=== PATIENT | female | born 1985 | race Caucasian/White ===

== ENCOUNTER 2023-12-02 13:28 | Emergency (ER) | payer OTHER, SELFPAY ==
[2023-12-02 13:43] VITALS: BP 113/75
--- NOTE | 2023-12-02 13:48 | ED.GENMED ---
ED Provider Triage
<Oxana Novoa SUPERINTENDENT STATIONS - Last Filed: 12/02/23 13:55>
-
Patient seen by provider in Triage?: Seen in Triage
Attestation: A medical screening examination has been initiated by a qualified medical provider. Based on the assessment performed at this time, it has been determined that an emergent medical condition may exist and the patient has been informed
that further medical evaluation and possible additional diagnostic testing may be needed.
HPI: 38 yo hx c section, gastroparesis, GERD (has been taking Omeprazole as ordered, took old rx for Carafate 5 days ago once with some relief), bilateral tubal removal, removal of left ovary, presents with 5 days intermittent 'burning, stabbing'
mid upper abdominal pain (does have hernia), vomited several times 5 days. Also chronically constipated. Last BM this a.m. she has to chronically manually remove her stool. Has been fasting for 3 months and lost 50 lbs.
GENERAL: Alert , in no apparent distress
ENT: No visible abnormalities.
LUNGS: No acute respiratory distress
NEUROLOGICAL: Alert and oriented
Abdomen: Tender mid epigastric.
SKIN: Skin intact. No visible changes.
MUSCULOSKELETAL: Moving extremities normally
PSYCH: Normal and appropriate interaction.
This is a medical evaluation conducted in person to initiate diagnostic evaluation and provide initial therapeutics. Please see further documentation by the treating clinician.
History of Present Illness
<Oxana Novoa SUPERINTENDENT STATIONS - Last Filed: 12/02/23 13:55>
General
Chief Complaint: Chest Pain
Time Seen by Provider: 12/02/23 16:17
<Yo Finley Jr., PA-C - Last Filed: 12/02/23 18:04>
General
Source: patient
Exam Limitations: none
Nursing documentation reviewed up to this point in time: agreed with
History of Present Illness
History of Present Illness:
38-year-old female past medical history gastroparesis, GERD, IBS presenting to department today with concerns of upper abdominal pain with intermittent nausea vomiting diarrhea also some radiating pain to the chest described as achy sharp which has
been intermittent for a few weeks. Denies nausea vomiting fevers
Past History
<Oxana Novoa SUPERINTENDENT STATIONS - Last Filed: 12/02/23 13:55>
Past History
ED Past Medical History: None; Negative GERD or HTN
ED Past Surgical History: Other (); Negative Cardiac
Social History
Tobacco: Smoker
Alcohol: None
Drug: None
Personal: Single
Living: with family
Employment: Employed
Family History
Family History: Other (Noncontributory )
Review of Systems
<Yo Finley Jr., PA-C - Last Filed: 12/02/23 18:04>
Review of Systems
Allergies reviewed?: Yes
All Other Systems: ROS reviewed and negative except as documented in HPI and ROS
Phy Exam
<Yo Finley Jr., PA-C - Last Filed: 12/02/23 18:04>
Physical Exam
Physical Exam:
GENERAL: Alert , in no apparent distress
EYE: pupils equal and reactive
NECK: Supple, no significant adenopathy.
ENT: o/p clr, mmm.
CARDIAC: Regular rate and rhythm .
LUNGS: Clear breath sounds bilaterally, no acute respiratory distress, no wheezes/rales/rhonchi
ABDOMEN: Mild pain to the upper abdomen otherwise soft, without focal sharp tenderness, no r/g, no cvat
NEUROLOGICAL: Alert and oriented, no focal neuro deficits
SKIN: Warm and dry, skin intact.
MUSCULOSKELETAL: No edema, well perfused.
PSYCH: Normal and appropriate interaction.
Scores
<Yo Finley Jr., PA-C - Last Filed: 12/02/23 18:04>
Heart Score for Chest Pain Patients
STEMI patient?: No
History: Slightly or Non-Suspicious
ECG: Normal
Age: </= 45 years
Risk Factors: No Risk Factors
Troponin: </= Normal Limit
Heart Score for Chest Pain Patients: 0
Heart Score Risk: 2.5% MACE over next 6 weeks
Course
<Oxana Novoa, SUPERINTENDENT STATIONS - Last Filed: 12/02/23 13:55>
Orders/Labs/Results
Orders:
Orders
12/02/23 13:31
Electrocardiogram (*1) Urgent
Reason for Study: Chest Pain
EKG- Treatment ONCE
12/02/23 13:47
Electrocardiogram (*1) Urgent
Reason for Study: Chest Pain
EKG- Treatment ONCE
Test Result ONCE
12/02/23 13:48
Urinalysis Reflex To Culture Urgent
Date Specimen was Collected: 12/02/23
Time Specimen was Collected: 13:47
12/02/23 13:49
CT Abd/pel W Iv And Oral Contr Urgent
Comment:
Reason For Exam: abd pain for the last wk
12/02/23 13:50
Iohexol [Omnipaque] 50 ml .ROUTE .STK-MED ONE
12/02/23 13:53
Iohexol [Omnipaque] See Protocol PO NOW STA
12/02/23 13:59
Complete Blood Count/With Diff Urgent
Comprehensive Metabolic Panel Urgent
HCG, Serum Qualitative Screen Urgent
12/02/23 14:58
Urinalysis Reflex To Culture Urgent
Date Specimen was Collected: 12/02/23
Time Specimen was Collected: 14:52
12/02/23 17:40
Ondansetron Injectable [Zofran] 4 mg .ROUTE .STK-MED ONE
Abnormal Lab Results
12/02/23
13:59
MPV 10.9 H fL
(7.4-10.4)
BUN 20 H mg/dl
(7-17)
12/02/23 13:59
12/02/23 13:59
Vital Signs
Initial and Last Documented VS:
Initial Vital Signs
Temp Pulse Resp BP Pulse Ox
98.0 F 69 16 113/75 98
12/02/23 13:43 12/02/23 13:43 12/02/23 13:43 12/02/23 13:43 12/02/23 13:43
Last Documented Vital Signs
Temp Pulse Resp BP Pulse Ox
98.0 F 65 16 105/66 100
12/02/23 13:43 12/02/23 16:58 12/02/23 16:58 12/02/23 16:58 12/02/23 16:58
<Yo Finley Jr., PA-C - Last Filed: 12/02/23 18:04>
Orders/Labs/Results
Orders:
Orders
12/02/23 13:31
Electrocardiogram (*1) Urgent
Reason for Study: Chest Pain
EKG- Treatment ONCE
12/02/23 13:47
Electrocardiogram (*1) Urgent
Reason for Study: Chest Pain
EKG- Treatment ONCE
Test Result ONCE
12/02/23 13:48
Urinalysis Reflex To Culture Urgent
Date Specimen was Collected: 12/02/23
Time Specimen was Collected: 13:47
12/02/23 13:49
CT Abd/pel W Iv And Oral Contr Urgent
Comment:
Reason For Exam: abd pain for the last wk
12/02/23 13:50
Iohexol [Omnipaque] 50 ml .ROUTE .STK-MED ONE
12/02/23 13:53
Iohexol [Omnipaque] See Protocol PO NOW STA
12/02/23 13:59
Complete Blood Count/With Diff Urgent
Comprehensive Metabolic Panel Urgent
HCG, Serum Qualitative Screen Urgent
12/02/23 14:58
Urinalysis Reflex To Culture Urgent
Date Specimen was Collected: 12/02/23
Time Specimen was Collected: 14:52
12/02/23 17:40
Ondansetron Injectable [Zofran] 4 mg .ROUTE .K-MED ONE
Abnormal Lab Results
12/02/23
13:59
MPV 10.9 H fL
(7.4-10.4)
BUN 20 H mg/dl
(7-17)
12/02/23 13:59
12/02/23 13:59
Vital Signs
Initial and Last Documented VS:
Initial Vital Signs
Temp Pulse Resp BP Pulse Ox
98.0 F 69 16 113/75 98
12/02/23 13:43 12/02/23 13:43 12/02/23 13:43 12/02/23 13:43 12/02/23 13:43
Last Documented Vital Signs
Temp Pulse Resp BP Pulse Ox
98.0 F 65 16 105/66 100
12/02/23 13:43 12/02/23 16:58 12/02/23 16:58 12/02/23 16:58 12/02/23 16:58
<Yo Finley Jr., PA-C - Last Filed: 12/02/23 18:04>
MDM/Problems Addressed
MDM/Problems Addressed:
38-year-old female presenting to the emergency department with vague abdominal chest discomfort intermittently over the past few weeks some ongoing nausea vomiting diarrhea over the past week or so has been improving with the urgent care sent to the
ER. Here labs without emergent findings patient generally well-appearing abdomen generally soft with some minimal discomfort to the upper abdomen. Here labs unremarkable, CT scan without emergent findings. Patient generally well-appearing stable
for outpatient management will follow-up closely with GI. Return precautions given
<Yo Finley Jr., PA-C - Last Filed: 12/02/23 18:04>
*Critical Care Note
Total Time (30-74mins, 75-104mins- exclusive of procedures): Not Applicable
ED Attending Note
<Oxana Novoa SUPERINTENDENT STATIONS - Last Filed: 12/02/23 13:55>
-
Portions of this chart may have been created with voice recognition software.� Occasional wrong word or��sound alike� substitutions may have occurred due to the inherent limitations of voice recognition software.
Discharge Plan
Departure
Patient Disposition: Home (Routine Discharge)
Date of Disposition: 12/02/23
Time of Disposition: 17:49
Patient with high blood pressure during this ER visit?: No
Condition: Good
Covid-19: Not Applicable
Discharge Problem:
Abdominal pain
Instructions: Abdominal Pain
Prescriptions:
New
ondansetron 4 mg tablet,disintegrating
4 mg PO Q6H PRN (Reason: nausea and vomiting) Qty: 7 0RF
No Action
pantoprazole 40 MG tablet,delayed release (DR/EC)
40 mg PO DAILY Qty: 15 0RF
ziprasidone HCl 20 MG capsule
20 mg PO DAILY
hydroxyzine pamoate 25 MG capsule
25 mg PO DAILY
sucralfate 1 GM/10 ML suspension
1 gm PO ACHS Qty: 500 1RF
ondansetron 4 mg tablet,disintegrating
4 mg PO TIDPRN PRN (Reason: nausea/vomiting) Qty: 10 0RF
Referrals:
Erika Summers, DO [Family Provider] -
Activity Restrictions/Additional Instructions:
You came to the emergency department today with concerns of abdominal discomfort. Here had a reassuring assessment. Please follow-up with your GI doctor and take Zofran 1 tab every 8 hours as needed for nausea.
Interventions
Interventions:
*Risk Screen - Suicide Last Done: 12/02/23 16:58
*General Assessment Last Done: 12/02/23 16:58
*Neglect/Abuse Screening Last Done: 12/02/23 16:58
ED- Fall Risk Assessment Last Done: 12/02/23 16:58
*ED COVID-19 Vaccine History Last Done: 12/02/23 16:58
WI-Wwqgkb-[facility] Assessment Last Done: 12/02/23 17:03
ED- Cardiac Assessment Last Done: 12/02/23 17:03
Discharge Date and Time
Discharge Date/Time: 12/02/23 17:57
Print Language: LITHUANIAN
[2023-12-02] MEDS: OMNIPAQUE 50 ML PO (13:54)
[2023-12-02 14:13] LABS: % Basophils 0.7 % (0-2); % Eosinophils 1.7 % (0-6); % Immature Granulocytes 0.2 % (0-0.5); % Lymphocytes 30.7 % (20.5-51.1); % Monocytes 5.8 % (1.7-9.3); % Neutrophils 60.9 % (42.2-75.2); Absolute Eosinophils 0.1 10^3/uL (0-0.7); Absolute Lymphocytes 1.8 10^3/uL (1.2-3.4); Absolute Monocytes 0.3 10^3/uL (0.1-0.6); Absolute Neutrophils 3.6 10^3/uL (1.4-6.5); Hematocrit 38.3 % (37.0-47.0); Hemoglobin 13.1 g/dL (12.0-16.0); Mean Corp Hgb Conc. 34.2 g/dL (33.0-37.0); Mean Corpuscular Hgb 29.8 pg (27.0-31.0); Mean Platelet Volume 10.9 fL (7.4-10.4); Nucleated Red Blood Cells % 0 %; Platelet Count 207 10^3/uL (130-400); Red Cell Dist. Width 12.9 % (11.5-14.5); White Blood Cell Count 5.8 10^3/uL (4.8-10.8)
[2023-12-02 14:21] LABS: Urine Albumin Negative (Neg - Trace); Urine Bilirubin Negative (Negative); Urine Character Clear (Clear); Urine Color Yellow; Urine Glucose Negative (Negative); Urine Ketone Negative (Negative); Urine Leukocyte Negative (Negative); Urine Nitrite Negative (Negative); Urine Occult Blood Negative (Negative); Urine Urobilinogen Negative (Neg - 1+)
[2023-12-02 14:29] LABS: HCG, Serum Qualitative Screen Negative
[2023-12-02 14:35] LABS: ALT (SGPT) 21 U/L (0-35); AST (SGOT) 25 U/L (14-36); Albumin 4.9 g/dl (3.5-5.0); Alkaline Phosphatase 49 U/L (38-126); Blood Urea Nitrogen 20 mg/dl (7-17); Calcium 9.4 mg/dl (8.4-10.2); Carbon Dioxide 23 mmol/L (22-30); Chloride 107 mmol/L (98-107); Glucose 87 mg/dl (70-99); Sodium 141 mmol/L (135-145); Total Bilirubin 0.9 mg/dl (0.2-1.3); Total Protein 7.3 g/dl (6.3-8.2); eGFR > 60.00
[2023-12-02 15:27] LABS: Urine Albumin Negative (Neg - Trace); Urine Bilirubin Negative (Negative); Urine Character Slightly Cloudy (Clear); Urine Color Yellow; Urine Glucose Negative (Negative); Urine Ketone Negative (Negative); Urine Leukocyte Negative (Negative); Urine Nitrite Negative (Negative); Urine Occult Blood Negative (Negative); Urine Specific Gravity 1.015 (<1.030); Urine Urobilinogen Negative (Neg - 1+)
[2023-12-02 15:43] VITALS: BP 138/85
[2023-12-02 16:57] VITALS: BMI 32.5
[2023-12-02 16:58] VITALS: BP 105/66
--- NOTE | 2023-12-02 17:20 | EDRN ---
Jerry MOSLEY in room w /pt at this time.
[2023-12-02] MEDS: ZOFRAN 4 MG IV (17:50)
--- NOTE | 2023-12-02 17:51 | EDRN ---
Pt's son was hurt in sports and pt had to leave. THis RN administered zofran as ordered and took IV out so pt could leave. Jerry MOSLEY said he was going to discharge pt and this RN informed pt that she would call w/ any info when discharge plan is
printed.
[2023-12-02 19:03] LABS: Lipase 149 U/L (23-300)
--- NOTE | 2023-12-02 19:18 | EDRN ---
Discharge plan reviewed verbally w/ pt over the phone at this time.
== END 2023-12-02 17:57 | disposition home or self-care (01) ==
LOC: EMR 13:28
PROVIDERS: Registered Nurse; EMERGENCY PHYSICIAN Emergency Medicine; FAMILY PHYSICIAN Family Medicine
DX: R10.9 Unspecified abdominal pain (principal); F17.200 Nicotine dependence, unspecified, uncomplicated; K31.84 Gastroparesis; K21.9 Gastro-esophageal reflux disease without esophagitis
CPT/HCPCS: 99285; 96374; 74177; 80053; 81003; 83690; 84703; 85025; 93005; Q9967